=== PATIENT | female | born 1965 | race Caucasian/White ===

== ENCOUNTER 2017-02-13 14:26 | Inpatient (IN) | payer BC ==
[~2017-02-13] VITALS: Ht 170.2 cm; Wt 66.2 kg
[2017-02-13 15:45] LABS: BASOPHIL % 1.8 % (0-2)
[2017-02-13 15:50] LABS: CALCIUM 8.8 mg/dL (8.5-10.1); CARBON DIOXIDE 25.9 mmol/L (21-32); CHLORIDE SERUM 102 mmol/L (98-107); CREATININE SERUM 0.7 mg/dL (0.6-1.0); GFR1 > 60 mL/min; GLUCOSE SERUM 124 mg/dL (74-106); SODIUM SERUM 136 mmol/L (136-145)
[2017-02-13 15:55] LABS: PLATELET COUNT 588 x10^3mcL (130-400); RED CELL DISTRIBUTION WIDTH 20.2 % (11.5-14.5)
[2017-02-13 16:03] LABS: ALKALINE PHOSPHATASE 187 U/L (46-116); ALT/SGPT 83 U/L (14-59); AST/SGOT 70 U/L (15-37); BILIRUBIN TOTAL 0.21 mg/dL (0.20-1.00); CHOLESTEROL 142 mg/dL (<200); HDL CHOLESTEROL 50 mg/dL (40-60); T4(THYROXINE) 9.3 ug/dL (4.7-13.3)
[2017-02-13 16:08] LABS: ALBUMIN 2.9 g/dL (3.4-5.0); TOTAL PROTEIN, SERUM 8.3 g/dL (6.4-8.2)
[2017-02-13 16:22] LABS: ovalocyte/elliptocyte 1+; rbc morphology (normal/abnorm) ABNORMAL (NORMAL)
[2017-02-13 20:31] VITALS: BP 113/67
[2017-02-13 20:32] LABS: MAGNESIUM 2.1 mg/dL (1.8-2.4); PHOSPHOROUS 3.1 mg/dL (2.5-4.9)
[2017-02-13 20:41] VITALS: Ht 170.2 cm; Wt 66.2 kg
[2017-02-14 05:45] VITALS: BP 103/61
[2017-02-14 06:50] VITALS: BP 136/72
[2017-02-14 06:51] LABS: RED CELL DISTRIBUTION WIDTH 20.7 % (11.5-14.5)
[2017-02-14 06:52] LABS: PLATELET COUNT 603 x10^3mcL (130-400); rbc morphology (normal/abnorm) ABNORMAL (NORMAL)
[2017-02-14 07:03] LABS: TOTAL IRON BINDING CAPACITY 399 ug/dL (250-450)
[2017-02-14 07:18] LABS: IRON 14 ug/dL (50-170)
[2017-02-14 09:46] VITALS: BP 123/66
[2017-02-14 10:31] LABS: RED BLOOD CELLS 3.92 M/mm3 (4.10-5.10)
[2017-02-14 13:01] VITALS: BP 115/70
[2017-02-14 16:31] LABS: APPEARANCE FLUID CLOUDY; SITE FLUID LEFT; SOURCE FLUID PLEURAL
[2017-02-14 16:32] LABS: COLOR FLUID YELLOW; LYMPHOCYTE FLUID 45 %; MONOCYTE FLUID 10 %; RBC FLUID 256 /cumm; WBC FLUID 356 /cumm
[2017-02-14 21:14] VITALS: BP 114/61
[2017-02-15] VITALS (21 sets, daily range): BP systolic 93–144; BP diastolic 33–84
[2017-02-15 06:11] LABS: CALCIUM 8.2 mg/dL (8.5-10.1); CARBON DIOXIDE 28.5 mmol/L (21-32); CHLORIDE SERUM 103 mmol/L (98-107); CREATININE SERUM 0.7 mg/dL (0.6-1.0); GFR1 > 60 mL/min; GLUCOSE SERUM 137 mg/dL (74-106); MAGNESIUM 2.1 mg/dL (1.8-2.4); PHOSPHOROUS 3.4 mg/dL (2.5-4.9); POTASSIUM SERUM 4.2 mmol/L (3.5-5.1); SODIUM SERUM 136 mmol/L (136-145)
[2017-02-15 06:38] LABS: BASOPHIL % 0.1 % (0-2)
[2017-02-15 06:58] LABS: PLATELET COUNT 497 x10^3mcL (130-400); RED CELL DISTRIBUTION WIDTH 20.9 % (11.5-14.5)
[2017-02-15 06:59] LABS: rbc morphology (normal/abnorm) ABNORMAL (NORMAL)
[2017-02-15 16:22] LABS: microscopic required? YES; urine erythrocyte NEGATIVE (NEGATIVE)
[2017-02-15 17:03] LABS: AMPHETAMINE QUAL UR NONE DETECTED (NEG <=1000)
[2017-02-16 06:01] VITALS: BP 109/63
[2017-02-16 07:21] LABS: CALCIUM 8.5 mg/dL (8.5-10.1); CARBON DIOXIDE 27.8 mmol/L (21-32); CHLORIDE SERUM 103 mmol/L (98-107); CREATININE SERUM 0.7 mg/dL (0.6-1.0); GFR1 > 60 mL/min; GLUCOSE SERUM 128 mg/dL (74-106); MAGNESIUM 2.2 mg/dL (1.8-2.4); PHOSPHOROUS 3.5 mg/dL (2.5-4.9); POTASSIUM SERUM 4.5 mmol/L (3.5-5.1); SODIUM SERUM 136 mmol/L (136-145)
[2017-02-16 07:27] LABS: BASOPHIL % 0 % (0-2); PLATELET COUNT 497 x10^3mcL (130-400); RED CELL DISTRIBUTION WIDTH 20.5 % (11.5-14.5)
[2017-02-16 07:29] LABS: rbc morphology (normal/abnorm) ABNORMAL (NORMAL)
[2017-02-16 10:05] VITALS: BP 129/62
[2017-02-16 13:27] VITALS: BP 127/74
[2017-02-16 17:32] VITALS: BP 119/59
[2017-02-16 21:42] VITALS: BP 121/70
[2017-02-17 05:06] VITALS: BP 109/64
[2017-02-17 06:33] LABS: BASOPHIL % 0.1 % (0-2)
[2017-02-17 06:48] LABS: CALCIUM 8.5 mg/dL (8.5-10.1); CARBON DIOXIDE 30.7 mmol/L (21-32); CHLORIDE SERUM 104 mmol/L (98-107); CREATININE SERUM 0.6 mg/dL (0.6-1.0); GFR1 > 60 mL/min; GLUCOSE SERUM 112 mg/dL (74-106); MAGNESIUM 2.2 mg/dL (1.8-2.4); PHOSPHOROUS 4.1 mg/dL (2.5-4.9); POTASSIUM SERUM 4.5 mmol/L (3.5-5.1); SODIUM SERUM 138 mmol/L (136-145)
[2017-02-17 07:48] LABS: RED CELL DISTRIBUTION WIDTH 20.4 % (11.5-14.5)
[2017-02-17 09:04] VITALS: BP 134/69
[2017-02-17 09:32] LABS: PLATELET COUNT 554 x10^3mcL (130-400)
[2017-02-17 17:26] VITALS: BP 117/62
[2017-02-17 21:25] VITALS: BP 110/62
[2017-02-17 21:26] VITALS: BP 118/74
[2017-02-18 05:17] VITALS: BP 125/76
[2017-02-18 06:41] LABS: BASOPHIL % 0.4 % (0-2)
[2017-02-18 06:46] LABS: PLATELET COUNT 562 x10^3mcL (130-400); RED CELL DISTRIBUTION WIDTH 19.4 % (11.5-14.5)
[2017-02-18 06:47] LABS: CALCIUM 8.5 mg/dL (8.5-10.1); CARBON DIOXIDE 30.4 mmol/L (21-32); CHLORIDE SERUM 103 mmol/L (98-107); CREATININE SERUM 0.6 mg/dL (0.6-1.0); GFR1 > 60 mL/min; GLUCOSE SERUM 111 mg/dL (74-106); MAGNESIUM 2.2 mg/dL (1.8-2.4); PHOSPHOROUS 4.1 mg/dL (2.5-4.9); POTASSIUM SERUM 4.6 mmol/L (3.5-5.1); SODIUM SERUM 138 mmol/L (136-145)
[2017-02-18 09:26] LABS: rbc morphology (normal/abnorm) ABNORMAL (NORMAL); schistocyte (helmet cell) 1+; target cell (codocyte) 1+; tear drop cell (dacryocyte) 1+
[2017-02-18 10:06] VITALS: BP 109/58
[2017-02-18 17:08] VITALS: BP 105/65
[2017-02-18 19:56] VITALS: BP 118/65
[2017-02-18 21:04] VITALS: BP 118/55
[2017-02-19 05:25] VITALS: BP 131/66
[2017-02-19 05:50] LABS: CALCIUM 8.7 mg/dL (8.5-10.1); CARBON DIOXIDE 30.8 mmol/L (21-32); CHLORIDE SERUM 101 mmol/L (98-107); CREATININE SERUM 0.7 mg/dL (0.6-1.0); GFR1 > 60 mL/min; GLUCOSE SERUM 120 mg/dL (74-106); MAGNESIUM 2.1 mg/dL (1.8-2.4); PHOSPHOROUS 4.5 mg/dL (2.5-4.9); POTASSIUM SERUM 4.6 mmol/L (3.5-5.1); SODIUM SERUM 137 mmol/L (136-145)
[2017-02-19 06:41] LABS: PLATELET COUNT 530 x10^3mcL (130-400)
[2017-02-19 07:53] LABS: BAND NEUTROPHIL 3 % (0-10); BASOPHIL 0 % (0-2); MONOCYTE 8 % (0-7); SEGMENTED NEUTROPHILS 79 % (37-75); rbc morphology (normal/abnorm) ABNORMAL (NORMAL)
[2017-02-19 07:55] LABS: target cell (codocyte) 1+
[2017-02-19 07:56] LABS: ovalocyte/elliptocyte 1+
[2017-02-19 08:30] VITALS: BP 131/66
[2017-02-19 08:50] VITALS: BP 117/53
[2017-02-19 11:15] VITALS: BP 112/80
[2017-02-19] MEDS ORDERED: FER300 PO (16:55)
[2017-02-19] MEDS ORDERED: DILAUDID2 MG PO (16:57)
[2017-02-19 18:24] VITALS: BP 112/80
== END 2017-02-19 19:14 | disposition home or self-care (01) | DRG 853 ==
LOC: ED 14:26 → DU 19:31 → MU 19:31 → DU 20:19 → MU 02-17 12:47
PROVIDERS: Emergency Medicine; Surgery; ADMIT Family Medicine
PROC: 0W9B30Z Drainage of Left Pleural Cavity with Drainage Device, Percutaneous Approach (ICD-10-PCS; 2017-02-14)
PROC: 0HBU3ZX Excision of Left Breast, Percutaneous Approach, Diagnostic (ICD-10-PCS; 2017-02-19)
PROC: 07B63ZX Excision of Left Axillary Lymphatic, Percutaneous Approach, Diagnostic (ICD-10-PCS; principal; 2017-02-19 10:00)
DX: A41.9 Sepsis, unspecified organism (principal); N17.0 Acute kidney failure with tubular necrosis; J96.01 Acute respiratory failure with hypoxia; J91.0 Malignant pleural effusion; E44.0 Moderate protein-calorie malnutrition; C78.7 Secondary malignant neoplasm of liver and intrahepatic bile duct; C78.01 Secondary malignant neoplasm of right lung; C79.71 Secondary malignant neoplasm of right adrenal gland; C50.912 Malignant neoplasm of unspecified site of left female breast; D50.9 Iron deficiency anemia, unspecified; R74.0 Nonspecific elevation of levels of transaminase and lactic acid dehydrogenase [LDH]; Z68.22 Body mass index [BMI] 22.0-22.9, adult; Z88.6 Allergy status to analgesic agent; Z91.018 Allergy to other foods; Z88.8 Allergy status to other drugs, medicaments and biological substances; F32.9 Major depressive disorder, single episode, unspecified; F41.9 Anxiety disorder, unspecified; F43.23 Adjustment disorder with mixed anxiety and depressed mood
CPT/HCPCS: 20206; 32555; 76641; 82962; 83880; A4301; C1729; C1894; J0696; J1100; J1170; J1644; J1940; J2001; J2060; J2250; J2405; J2543; J2704; J3010; J3490; J7030; J7050; J7120; J7613; J7620; Q0092; Q9966; Q9967

== ENCOUNTER 2017-03-14 10:56 | Inpatient (IN) | payer BC ==
[~2017-03-14] VITALS: Ht 170.2 cm; Wt 87.7 kg
[~2017-03-14 10:56] MED LIST: DILAUDID2 MG PO; FER300 PO
[2017-03-14 12:20] LABS: RED CELL DISTRIBUTION WIDTH 21.2 % (11.5-14.5)
[2017-03-14 12:21] LABS: PLATELET COUNT 549 x10^3mcL (130-400)
[2017-03-14 12:25] LABS: CALCIUM 8.4 mg/dL (8.5-10.1); CARBON DIOXIDE 26.9 mmol/L (21-32); CHLORIDE SERUM 101 mmol/L (98-107); CREATININE SERUM 0.8 mg/dL (0.6-1.0); GFR1 > 60 mL/min; GLUCOSE SERUM 114 mg/dL (74-106); POTASSIUM SERUM 4.4 mmol/L (3.5-5.1); SODIUM SERUM 136 mmol/L (136-145)
[2017-03-14 12:36] LABS: BAND NEUTROPHIL 13 % (0-10); BASOPHIL 2 % (0-2); PLATELET MORPHOLOGY PLATELETS INCREASED; SEGMENTED NEUTROPHILS 77 % (37-75); rbc morphology (normal/abnorm) ABNORMAL (NORMAL)
[2017-03-14 12:41] LABS: ALBUMIN 2.7 g/dL (3.4-5.0); ALKALINE PHOSPHATASE 299 U/L (46-116); ALT/SGPT 96 U/L (14-59); AST/SGOT 140 U/L (15-37); BILIRUBIN TOTAL 0.23 mg/dL (0.20-1.00); LACTIC DEHYDROGENASE (LDH) 1731 U/L (100-190); TOTAL PROTEIN, SERUM 8.1 g/dL (6.4-8.2)
[2017-03-14] MEDS ORDERED: HYDROMORPHONE2 M1 PO (12:58)
[2017-03-14] MEDS ORDERED: ONDANSETRON4 M3 PO (12:58)
[2017-03-14 13:23] VITALS: BP 131/75
[2017-03-14 13:46] VITALS: BP 123/66
[2017-03-14 14:00] LABS: CHOLESTEROL/HDL RATIO 3.1; PHOSPHOROUS 3.3 mg/dL (2.5-4.9)
[2017-03-14 14:07] LABS: T3 TOTAL 1.04 ng/mL
[2017-03-14 14:12] LABS: FREE T4 1.22 ng/dL (0.76-1.46); FREE THYROXINE INDEX 3.6 ug/dL (1.4-4.5); T4(THYROXINE) 10.6 ug/dL (4.7-13.3)
[2017-03-14 14:29] LABS: RED BLOOD CELLS 3.91 M/mm3 (4.10-5.10)
[2017-03-14 14:31] LABS: TOTAL IRON BINDING CAPACITY 403 ug/dL (250-450)
[2017-03-14 14:32] LABS: IRON 16 ug/dL (50-170)
[2017-03-14 21:43] VITALS: BP 107/58
[2017-03-15] VITALS (8 sets, daily range): BP systolic 107–123; BP diastolic 50–68
[2017-03-15 07:36] LABS: CARBON DIOXIDE 29.3 mmol/L (21-32); CHLORIDE SERUM 99 mmol/L (98-107); CREATININE SERUM 0.8 mg/dL (0.6-1.0); GFR1 > 60 mL/min; GLUCOSE SERUM 143 mg/dL (74-106); MAGNESIUM 2.3 mg/dL (1.8-2.4); PHOSPHOROUS 4.7 mg/dL (2.5-4.9); POTASSIUM SERUM 4.4 mmol/L (3.5-5.1); SODIUM SERUM 136 mmol/L (136-145)
[2017-03-15 08:04] LABS: BASOPHIL % 0 % (0-2); PLATELET COUNT 541 x10^3mcL (130-400); RED CELL DISTRIBUTION WIDTH 21.2 % (11.5-14.5)
[2017-03-15 08:23] LABS: rbc morphology (normal/abnorm) ABNORMAL (NORMAL)
[2017-03-15 08:24] LABS: ovalocyte/elliptocyte 1+; target cell (codocyte) 1+
[2017-03-15 18:12] LABS: SOURCE FLUID THORACENTESIS
[2017-03-15 19:31] LABS: UA SPECIFIC GRAVITY >=1.030 (1.005-1.035); microscopic required? YES; urine erythrocyte TRACE (NEGATIVE)
[2017-03-15 19:38] LABS: AMPHETAMINE QUAL UR NONE DETECTED (NEG <=1000)
[2017-03-15 19:58] LABS: APPEARANCE FLUID CLOUDY; COLOR FLUID PALE YELLOW; RBC FLUID 505 /cumm
[2017-03-15 19:59] LABS: LYMPHOCYTE FLUID 32 %
[2017-03-15 20:01] LABS: MONOCYTE FLUID 16 %
[2017-03-15 20:07] LABS: WBC FLUID 78 /cumm
[2017-03-16 05:52] VITALS: BP 113/74
[2017-03-16 06:43] LABS: CALCIUM 8.9 mg/dL (8.5-10.1); CARBON DIOXIDE 28.9 mmol/L (21-32); CHLORIDE SERUM 100 mmol/L (98-107); CREATININE SERUM 0.8 mg/dL (0.6-1.0); GFR1 > 60 mL/min; GLUCOSE SERUM 122 mg/dL (74-106); MAGNESIUM 2.2 mg/dL (1.8-2.4); PHOSPHOROUS 3.8 mg/dL (2.5-4.9); POTASSIUM SERUM 4.7 mmol/L (3.5-5.1); SODIUM SERUM 136 mmol/L (136-145)
[2017-03-16 06:59] LABS: BASOPHIL % 0 % (0-2); PLATELET COUNT 616 x10^3mcL (130-400); RED CELL DISTRIBUTION WIDTH 21.4 % (11.5-14.5)
[2017-03-16 07:27] LABS: rbc morphology (normal/abnorm) ABNORMAL (NORMAL); target cell (codocyte) 1+
[2017-03-16 09:34] VITALS: BP 107/56
[2017-03-16 14:01] VITALS: BP 109/61
[2017-03-16 17:10] VITALS: BP 115/67
[2017-03-16 21:55] VITALS: BP 112/63
[2017-03-17] VITALS (7 sets, daily range): BP systolic 99–122; BP diastolic 55–72
[2017-03-17 06:30] LABS: CALCIUM 8.9 mg/dL (8.5-10.1); CARBON DIOXIDE 31.5 mmol/L (21-32); CHLORIDE SERUM 103 mmol/L (98-107); CREATININE SERUM 0.7 mg/dL (0.6-1.0); GFR1 > 60 mL/min; GLUCOSE SERUM 97 mg/dL (74-106); MAGNESIUM 2.2 mg/dL (1.8-2.4); PHOSPHOROUS 3.4 mg/dL (2.5-4.9); POTASSIUM SERUM 4.3 mmol/L (3.5-5.1); SODIUM SERUM 139 mmol/L (136-145)
[2017-03-17 08:38] LABS: PLATELET COUNT 648 x10^3mcL (130-400); RED CELL DISTRIBUTION WIDTH 21.5 % (11.5-14.5)
[2017-03-17 11:18] LABS: ATYPICAL LYMPH 2 %; BAND NEUTROPHIL 0 % (0-10); BASOPHIL 2 % (0-2); MONOCYTE 8 % (0-7); SEGMENTED NEUTROPHILS 50 % (37-75)
[2017-03-17 11:19] LABS: MYELOCYTE 4 % (0-2); PLATELET MORPHOLOGY PLATELETS INCREASED; rbc morphology (normal/abnorm) ABNORMAL (NORMAL)
[2017-03-18 05:49] VITALS: BP 100/70
[2017-03-18 06:36] LABS: CALCIUM 8.8 mg/dL (8.5-10.1); CARBON DIOXIDE 29.5 mmol/L (21-32); CHLORIDE SERUM 103 mmol/L (98-107); CREATININE SERUM 0.8 mg/dL (0.6-1.0); GFR1 > 60 mL/min; GLUCOSE SERUM 90 mg/dL (74-106); POTASSIUM SERUM 4.1 mmol/L (3.5-5.1); SODIUM SERUM 139 mmol/L (136-145)
[2017-03-18 09:36] LABS: PLATELET COUNT 651 x10^3mcL (130-400); RED CELL DISTRIBUTION WIDTH 19.3 % (11.5-14.5)
[2017-03-18 09:58] VITALS: BP 115/69
[2017-03-18 10:28] LABS: BAND NEUTROPHIL 2 % (0-10); BASOPHIL 0 % (0-2); MONOCYTE 18 % (0-7); SEGMENTED NEUTROPHILS 40 % (37-75)
[2017-03-18 10:30] LABS: rbc morphology (normal/abnorm) ABNORMAL (NORMAL); schistocyte (helmet cell) 1+; tear drop cell (dacryocyte) 1+
[2017-03-18 10:31] LABS: PLATELET MORPHOLOGY PLATELETS INCREASED
[2017-03-18 13:00] VITALS: BP 138/75
[2017-03-18 18:03] VITALS: BP 124/61
[2017-03-18 21:13] VITALS: BP 127/70
[2017-03-19 05:36] VITALS: BP 118/68
[2017-03-19 06:44] LABS: CALCIUM 8.6 mg/dL (8.5-10.1); CARBON DIOXIDE 28.8 mmol/L (21-32); CHLORIDE SERUM 101 mmol/L (98-107); CREATININE SERUM 0.6 mg/dL (0.6-1.0); GFR1 > 60 mL/min; GLUCOSE SERUM 98 mg/dL (74-106); PHOSPHOROUS 4.6 mg/dL (2.5-4.9); POTASSIUM SERUM 4.1 mmol/L (3.5-5.1); SODIUM SERUM 139 mmol/L (136-145)
[2017-03-19 07:57] LABS: PLATELET COUNT 605 x10^3mcL (130-400); RED CELL DISTRIBUTION WIDTH 22.1 % (11.5-14.5)
[2017-03-19 09:33] LABS: BAND NEUTROPHIL 0 % (0-10); MONOCYTE 20 % (0-7); SEGMENTED NEUTROPHILS 20 % (37-75); rbc morphology (normal/abnorm) ABNORMAL (NORMAL); schistocyte (helmet cell) 1+
[2017-03-19 09:34] LABS: PLATELET MORPHOLOGY PLATELETS INCREASED
[2017-03-19 13:41] VITALS: BP 123/71
[2017-03-19 17:47] VITALS: BP 104/56
[2017-03-19 22:37] VITALS: BP 107/55
[2017-03-20 05:11] VITALS: BP 107/64
[2017-03-20 06:09] VITALS: BP 107/64
[2017-03-20 06:59] LABS: CALCIUM 8.7 mg/dL (8.5-10.1); CARBON DIOXIDE 29.2 mmol/L (21-32); CHLORIDE SERUM 102 mmol/L (98-107); CREATININE SERUM 0.7 mg/dL (0.6-1.0); GFR1 > 60 mL/min; GLUCOSE SERUM 111 mg/dL (74-106); MAGNESIUM 2.2 mg/dL (1.8-2.4); PHOSPHOROUS 3.8 mg/dL (2.5-4.9); POTASSIUM SERUM 4.3 mmol/L (3.5-5.1); SODIUM SERUM 139 mmol/L (136-145)
[2017-03-20 07:07] LABS: RED CELL DISTRIBUTION WIDTH 21.7 % (11.5-14.5)
[2017-03-20 07:08] LABS: PLATELET COUNT 578 x10^3mcL (130-400)
[2017-03-20 09:14] VITALS: BP 107/61
[2017-03-20 10:29] LABS: ATYPICAL LYMPH 3 %; BAND NEUTROPHIL 9 % (0-10); METAMYELOCTE 2 % (0-2); MONOCYTE 36 % (0-7); SEGMENTED NEUTROPHILS 21 % (37-75)
[2017-03-20 10:30] LABS: ovalocyte/elliptocyte 1+; rbc morphology (normal/abnorm) ABNORMAL (NORMAL)
[2017-03-20 10:31] LABS: PATH REVIEW for HEMA YES
[2017-03-20 13:16] VITALS: BP 113/69
[2017-03-20 13:46] VITALS: BP 113/69
[2017-03-20 16:59] VITALS: BP 110/68
== END 2017-03-20 18:12 | disposition home or self-care (01) | DRG 597 ==
LOC: ED 10:56 → DU 13:02
PROVIDERS: Emergency Medicine; Family Medicine Sports Medicine; ADMIT Family Medicine
PROC: 0W9B3ZZ Drainage of Left Pleural Cavity, Percutaneous Approach (ICD-10-PCS; principal; 2017-03-15)
DX: C50.912 Malignant neoplasm of unspecified site of left female breast (principal); E43 Unspecified severe protein-calorie malnutrition; J96.00 Acute respiratory failure, unspecified whether with hypoxia or hypercapnia; N17.0 Acute kidney failure with tubular necrosis; J91.0 Malignant pleural effusion; C78.7 Secondary malignant neoplasm of liver and intrahepatic bile duct; C78.01 Secondary malignant neoplasm of right lung; C79.71 Secondary malignant neoplasm of right adrenal gland; R65.10 Systemic inflammatory response syndrome (SIRS) of non-infectious origin without acute organ dysfunction; D68.69 Other thrombophilia; E11.65 Type 2 diabetes mellitus with hyperglycemia; R74.0 Nonspecific elevation of levels of transaminase and lactic acid dehydrogenase [LDH]; F43.23 Adjustment disorder with mixed anxiety and depressed mood; D63.0 Anemia in neoplastic disease; Z68.27 Body mass index [BMI] 27.0-27.9, adult; Z88.5 Allergy status to narcotic agent; F41.9 Anxiety disorder, unspecified; F32.9 Major depressive disorder, single episode, unspecified; D64.9 Anemia, unspecified; Z53.29 Procedure and treatment not carried out because of patient's decision for other reasons; D72.819 Decreased white blood cell count, unspecified
CPT/HCPCS: 32555; 36600; 82962; 83880; 84439; 85060; 88344; 94150; C1729; J1170; J1644; J1885; J1940; J2543; J2916; J2920; J2930; J3490; J7050; J7510; J7620; Q0092